=== PATIENT | female | born 1990 | race Caucasian/White ===

== ENCOUNTER 2019-07-08 03:18 | Emergency (ER) | payer SELFPAY ==
[2019-07-08] MEDS ORDERED: Ondansetron 4 MG Tab.DIS PO ONE (03:54)
--- NOTE | 2019-07-08 04:13 | EDM.PDOC ---
ED HPI GENERAL MEDICAL PROBLEM - General Chief Complaint: Abdominal Pain Stated Complaint: VOMITING/ABD PAIN Time Seen by Provider: 07/08/19 03:41 Source of Information: Reports: Patient, RN Notes Reviewed - History of Present Illness INITIAL COMMENTS - FREE TEXT/NARRATIVE: 28-year-old female comes in with abdominal pain, nausea vomiting and diarrhea. Saw started early yesterday morning about 22 hours ago. She awakened with abdominal pain nausea vomiting early yesterday morning and continued to have nausea intermittent vomiting throughout the day. She then did have some diarrhea around noon yesterday, multiple episodes of watery diarrhea. When she has tried to eat she has more vomiting or diarrhea. To her knowledge she has not eaten anything that would be making her ill. There's been no obvious fever. 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 Social & Family History - Tobacco Use Smoking Status *Q: Former Smoker Years of Tobacco use: 13 Packs/Tins Daily: 0.5 Used Tobacco, but Quit: Yes Month/Year Tobacco Last Used: april 2019 - Caffeine Use Caffeine Use: Reports: None - Recreational Drug Use Recreational Drug Use: No ED ROS GENERAL - Review of Systems Review Of Systems: See Below Constitutional: Denies: Fever, Chills HEENT: Reports: No Symptoms Respiratory: Denies: Shortness of Breath Cardiovascular: Denies: Chest Pain GI/Abdominal: Reports: Abdominal Pain (Generalized cramping), Diarrhea, Nausea, Vomiting (Watery repetitive) Musculoskeletal: Reports: No Symptoms Skin: Reports: No Symptoms Neurological: Reports: No Symptoms ED EXAM, GI/ABD - Physical Exam Exam: See Below General Appearance: Alert, No Apparent Distress Throat/Mouth: Normal Inspection, Normal Oropharynx Head: Atraumatic Neck: Supple Respiratory/Chest: No Respiratory Distress, Lungs Clear, Normal Breath Sounds Cardiovascular: Regular Rate, Rhythm GI/Abdominal Exam: Soft, Tender (Mild diffuse tenderness). No: Guarding, Rebound Extremities: Normal Inspection, Normal Range of Motion Neurological: Alert, Oriented, No Motor/Sensory Deficits Skin Exam: Warm, Dry, Normal Color Course - Vital Signs Last Recorded V/S: Last Vital Signs Temp 96.8 F 07/08/19 03:28 Pulse 98 07/08/19 03:28 Resp 20 07/08/19 03:28 BP 147/90 H 07/08/19 03:28 Pulse Ox 99 07/08/19 03:28 - Orders/Labs/Meds Meds: Medications Discontinued Medications Generic Name Dose Route Start Last Admin Trade Name Freq PRN Reason Stop Dose Admin Ondansetron HCl 4 mg 07/08/19 03:54 07/08/19 04:00 Zofran Odt PO 07/08/19 03:55 4 mg ONETIME ONE Administration - Re-Assessments/Exams Free Text/Narrative Re-Assessment/Exam: 07/08/19 04:28 Have given Zofran 4 mg ODT. Discharge instructions as documented. Departure - Departure Time of Disposition: 04:11 Disposition: Home, Self-Care 01 Condition: Fair Clinical Impression: Abdominal pain Qualifiers: Abdominal location: generalized Qualified Code(s): R10.84 - Generalized abdominal pain Diarrhea Qualifiers: Diarrhea type: unspecified type Qualified Code(s): R19.7 - Diarrhea, unspecified Vomiting Qualifiers: Vomiting type: unspecified Vomiting Intractability: non-intractable - Discharge Information Prescriptions: Ondansetron [Zofran ODT] 4 mg PO Q6H PRN #7 tab.dis PRN Reason: Nausea/Vomiting Instructions: Abdominal Pain, Adult, [id number] Referrals: PCP,None [Primary Care Provider] - Forms: ED Department Discharge, ED Return to Work/School Form Additional Instructions: Rest, clear liquids until this evening, then very careful bland diet as tolerated. Aufranc 4 mg ODT if needed for further nausea or vomiting. Again probiotic and take that twice daily for at least one week and thereafter as needed. Follow-up clinic if not getting back to normal within 2-3 days as expected. Return to ED as needed if symptoms worsening in any way.
== END 2019-07-08 04:18 | disposition home or self-care (01) ==
LOC: JD.ED 03:18
DX: R19.7 Diarrhea, unspecified (principal); R10.84 Generalized abdominal pain; R11.2 Nausea with vomiting, unspecified; K21.9 Gastro-esophageal reflux disease without esophagitis; Z79.899 Other long term (current) drug therapy; Z87.891 Personal history of nicotine dependence
CPT/HCPCS: 99283; A9270

== ENCOUNTER 2020-01-11 09:54 | Emergency (ER) | payer SELFPAY ==
--- NOTE | 2020-01-11 11:05 | EDM.PDOC ---
ED HPI GENERAL MEDICAL PROBLEM - General Chief Complaint: Gastrointestinal Problem Stated Complaint: VOMITING Time Seen by Provider: 01/11/20 10:54 - History of Present Illness INITIAL COMMENTS - FREE TEXT/NARRATIVE: 29-year-old female presents the emergency room with nausea vomiting. This has been going on for a couple of weeks now she has been throwing up once or twice daily. She has occasional loose stool usually following a vomiting episode. She does not have any significant abdominal discomfort. She denies any burning or frequency with urination. No fevers or chills. Patient denies any prior history of abdominal surgeries, she is not taking any routine medications. She had a negative test about a week ago. 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 No: Lymphadenopathy (L), Lymphadenopathy (R) Respiratory/Chest: No Respiratory Distress, Lungs Clear, Normal Breath Sounds Cardiovascular: Regular Rate, Rhythm, No Edema, No Murmur GI/Abdominal Exam: Normal Bowel Sounds, Soft, Non-Tender. No: Guarding, Rigid, Rebound Back Exam: Normal Inspection. No: CVA Tenderness (L), CVA Tenderness (R) Extremities: Normal Inspection, No Pedal Edema Course - Vital Signs Last Recorded V/S: Last Vital Signs Temp 36.9 C 01/11/20 10:06 Pulse 88 01/11/20 10:06 Resp 16 01/11/20 10:06 BP 129/104 H 01/11/20 10:06 Pulse Ox 98 01/11/20 10:06 - Orders/Labs/Meds Labs: Laboratory Tests 01/11/20 01/11/20 01/11/20 Range/Units 10:40 11:10 11:10 WBC 11.13 H (3.98-10.04) K/mm3 RBC 5.33 H (3.98-5.22) M/mm3 Hgb 15.5 (11.2-15.7) gm/dl Hct 44.4 (34.1-44.9) % MCV 83.3 (79.4-94.8) fl MCH 29.1 (25.6-32.2) pg MCHC 34.9 (32.2-35.5) g/dl RDW Std Deviation 39.2 (36.4-46.3) fL Plt Count 410 H (182-369) K/mm3 MPV 9.0 L (9.4-12.3) fl Neut % (Auto) 73.1 H (34.0-71.1) % Lymph % (Auto) 20.6 (19.3-51.7) % [place] % (Auto) 5.1 (4.7-12.5) % Eos % (Auto) 0.5 L (0.7-5.8) Baso % (Auto) 0.4 (0.1-1.2) % Neut # (Auto) 8.13 H (1.56-6.13) K/mm3 Lymph # (Auto) 2.29 (1.18-3.74) K/mm3 [place] # (Auto) 0.57 H (0.24-0.36) K/mm3 Eos # (Auto) 0.06 (0.04-0.36) K/mm3 Baso # (Auto) 0.05 (0.01-0.08) K/mm3 Sodium 135 L (136-145) mEq/L Potassium 4.2 (3.5-5.1) mEq/L Chloride 97 L (98-107) mEq/L Carbon Dioxide 25 (21-32) mEq/L Anion Gap 17.2 H (5-15) BUN 10 (7-18) mg/dL Creatinine 0.7 (0.55-1.02) mg/dL Est Cr Clr Drug Dosing 91.09 mL/min Estimated GFR (MDRD) > 60 (>60) mL/min BUN/Creatinine Ratio 14.3 (14-18) Glucose 231 H (74-106) mg/dL Calcium 9.4 (8.5-10.1) mg/dL Total Bilirubin 0.7 (0.2-1.0) mg/dL AST 43 H (15-37) U/L ALT 98 H (14-59) U/L Alkaline Phosphatase 55 (46-116) U/L Total Protein 8.4 H (6.4-8.2) g/dl Albumin 4.1 (3.4-5.0) g/dl Globulin 4.3 gm/dL Albumin/Globulin Ratio 1.0 (1-2) HCG, Qual (NEGATIVE) Urine Color Yellow (Yellow) Urine Appearance Clear (Clear) Urine pH 6.0 (5.0-8.0) Ur Specific Ramsey > or = 1.030 (1.005-1.030) Urine Protein Trace H (Negative) Urine Glucose (UA) 2+ H (Negative) Urine Ketones 2+ H (Negative) Urine Occult Blood Negative (Negative) Urine Nitrite Negative (Negative) Urine Bilirubin Negative (Negative) Urine Urobilinogen 0.2 (0.2-1.0) Ur Leukocyte Esterase Negative (Negative) Urine RBC 0-5 (0-5) /hpf Urine WBC 0-5 (0-5) /hpf Ur Squamous Epith Cells 0-5 (0-5) /hpf Urine Bacteria Moderate H (FEW) /hpf Urine Mucus Few (FEW) /hpf 01/11/20 Range/Units 11:10 WBC (3.98-10.04) K/mm3 RBC (3.98-5.22) M/mm3 Hgb (11.2-15.7) gm/dl Hct (34.1-44.9) % MCV (79.4-94.8) fl MCH (25.6-32.2) pg MCHC (32.2-35.5) g/dl RDW Std Deviation (36.4-46.3) fL Plt Count (182-369) K/mm3 MPV (9.4-12.3) fl Neut % (Auto) (34.0-71.1) % Lymph % (Auto) (19.3-51.7) % [place] % (Auto) (4.7-12.5) % Eos % (Auto) (0.7-5.8) Baso % (Auto) (0.1-1.2) % Neut # (Auto) (1.56-6.13) K/mm3 Lymph # (Auto) (1.18-3.74) K/mm3 [place] # (Auto) (0.24-0.36) K/mm3 Eos # (Auto) (0.04-0.36) K/mm3 Baso # (Auto) (0.01-0.08) K/mm3 Sodium (136-145) mEq/L Potassium (3.5-5.1) mEq/L Chloride (98-107) mEq/L Carbon Dioxide (21-32) mEq/L Anion Gap (5-15) BUN (7-18) mg/dL Creatinine (0.55-1.02) mg/dL Est Cr Clr Drug Dosing mL/min Estimated GFR (MDRD) (>60) mL/min BUN/Creatinine Ratio (14-18) Glucose (74-106) mg/dL Calcium (8.5-10.1) mg/dL Total Bilirubin (0.2-1.0) mg/dL AST (15-37) U/L ALT (14-59) U/L Alkaline Phosphatase (46-116) U/L Total Protein (6.4-8.2) g/dl Albumin (3.4-5.0) g/dl Globulin gm/dL Albumin/Globulin Ratio (1-2) HCG, Qual Negative (NEGATIVE) Urine Color (Yellow) Urine Appearance (Clear) Urine pH (5.0-8.0) Ur Specific [place] (1.005-1.030) Urine Protein (Negative) Urine Glucose (UA) (Negative) Urine Ketones (Negative) Urine Occult Blood (Negative) Urine Nitrite (Negative) Urine Bilirubin (Negative) Urine Urobilinogen (0.2-1.0) Ur Leukocyte Esterase (Negative) Urine RBC (0-5) /hpf Urine WBC (0-5) /hpf Ur Squamous Epith Cells (0-5) /hpf Urine Bacteria (FEW) /hpf Urine Mucus (FEW) /hpf Meds: Medications Discontinued Medications Generic Name Dose Route Start Last Admin Trade Name Damon PRN Reason Stop Dose Admin Lactated Ringer's 1,000 mls @ 999 mls/hr 01/11/20 11:09 01/11/20 11:32 Ringers, Lactated IV 01/11/20 12:09 999 mls/hr .BOLUS ONE Administration Ondansetron HCl 4 mg 01/11/20 11:09 01/11/20 11:32 Zofran IVPUSH 01/11/20 11:10 4 mg ONETIME ONE Administration - Re-Assessments/Exams Free Text/Narrative Re-Assessment/Exam: 01/11/20 13:16 Is doing much better after IV fluids and Zofran labs reviewed her blood sugars 231. She is been told she has been hyperglycemic in the past. I have advised to follow-up with her regular provider and get this evaluated. We will discharge with some Zofran Departure - Departure Time of Disposition: 13:17 Disposition: Home, Self-Care 01 Clinical Impression: Nausea and vomiting - Discharge Information Prescriptions: Ondansetron [Zofran ODT] 4 mg PO Q6H PRN #8 tab.dis PRN Reason: Nausea/Vomiting Referrals: PCP,None [Primary Care Provider] - Forms: ED Department Discharge Additional Instructions: Return to the emergency room with any questions problems or worsening symptoms. Follow-up in the hospital clinic in 1 week call today or tomorrow to schedule an appointment [phone]. Discuss any current problems including your hyperglycemia Use the Zofran as needed for nausea and vomiting Sepsis Event Note - Evaluation Sepsis Screening Result: No Definite Risk - Focused Exam Vital Signs: Vital Signs Temp Pulse Resp BP Pulse Ox 01/11/20 10:06 36.9 C 88 16 129/104 H 98 Date Exam was Performed: 01/11/20 Time Exam was Performed: 13:14
[2020-01-11] MEDS ORDERED: Ondansetron 4 MG/2 ML SDV IVPUSH ONE (11:09)
[2020-01-11] MEDS ORDERED: Lactated Ringers 1,000 ML IV ONE (11:09)
== END 2020-01-11 13:29 | disposition home or self-care (01) ==
LOC: JD.ED 09:54
DX: R11.2 Nausea with vomiting, unspecified (principal)
CPT/HCPCS: 36415; 80053; 81001; 84703; 85025; 96361; 96374; 99284; J2405; J7120; 99283

== ENCOUNTER 2021-05-20 03:17 | Emergency (ER) | payer SELFPAY ==
--- NOTE | 2021-05-20 03:46 | EDM.PDOC ---
ED HPI GENERAL MEDICAL PROBLEM - General Chief Complaint: Abdominal Pain Stated Complaint: gallbladder pain fever Time Seen by Provider: 05/20/21 03:31 Source of Information: Reports: Patient History Limitations: Reports: No Limitations - History of Present Illness INITIAL COMMENTS - FREE TEXT/NARRATIVE: Patient is a 30-year-old female complaining of near 10 out of 10 abdominal pain in her right upper quadrant consistent with her previous Maude lithiasis. Patient has been seen by and is scheduled to have her gallbladder removed on the of this month. Patient denies any vomiting but feels nauseous and denies any diarrhea or dysuria. She denies any fever or shaking chills. She has taken nothing for her pain symptoms. She states she only ate a peanut butter sandwich approximately 5 PM before onset of her pain at 7 PM. She denies having any greasy or fatty foods. She does not drink alcohol. Onset: Today Duration: Getting Worse Location: Reports: Abdomen Quality: Reports: Sharp, Stabbing Severity: Severe Improves with: Reports: None Worsens with: Reports: None Associated Symptoms: Reports: No Other Symptoms Right Upper Chest Pain Score (Numeric/FACES): 10 - Related Data Allergies Allergy/AdvReac Type Severity Reaction Status Date / Time No Known Allergies Allergy Verified 01/11/20 10:08 Home Meds: Home Meds Ondansetron [Zofran ODT] 4 mg PO Q6H PRN #7 tab.dis 05/20/21 [Rx] oxyCODONE HCl/Acetaminophen [Oxycodone-Acetaminophen 5-300] 1 each PO Q6HR PRN #10 tablet 05/20/21 [Rx] Past Medical History - Past Health History Medical/Surgical History: Denies Medical/Surgical History Gastrointestinal History: 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 ED EXAM, GI/ABD - Physical Exam Exam: See Below Exam Limited By: No Limitations General Appearance: Alert, Mild Distress Head: Atraumatic Neck: Normal Inspection Respiratory/Chest: No Respiratory Distress, Lungs Clear Cardiovascular: Regular Rate, Rhythm, No JVD GI/Abdominal Exam: Normal Bowel Sounds, No Organomegaly, Tender. No: Guarding, Rigid, Rebound Back Exam: Normal Inspection Extremities: Normal Inspection Neurological: Alert, Oriented Psychiatric: Normal Affect Skin Exam: Warm, Dry, Normal Color Course - Vital Signs Text/Narrative:: Patient was treated initially with IV fluids Toradol and a Elbe with Zofran. She did not get much pain relief with this she was given additional 4 mg morphine and is feeling much more comfortable. Patient's lab work is all normal. I will discharge her home at this time with instructions to call her surgeon if her symptoms continue and to return to ER if her symptoms worsen. Patient is scheduled to have her gallbladder out this Friday. I will give her prescriptions for a few Percocet and some Zofran. Last Recorded V/S: Last Vital Signs Temp 95.9 F L 05/20/21 03:37 Pulse 88 05/20/21 03:37 Resp 18 05/20/21 03:37 BP 116/59 L 05/20/21 03:37 Pulse Ox 97 05/20/21 03:37 - Orders/Labs/Meds Orders: Active Orders 24 hr Category Date Time Status Peripheral IV Care [RC] . DIRECTED Care 05/20/21 03:57 Active UA W/O MICROSCOPIC [URIN] Stat Lab 05/20/21 03:57 Ordered Sodium Chloride 0.9% [Saline Flush] Med 05/20/21 03:56 Active 10 ml FLUSH ASDIRECTED PRN Peripheral IV Insertion Adult [OM.PC] Routine Oth 05/20/21 03:55 Ordered Medication Orders Sodium Chloride (Sodium Chloride 0.9% 10 Ml Syringe) 10 ml FLUSH ASDIRECTED PRN PRN Reason: Keep Vein Open Last Admin: 05/20/21 04:37 Dose: 10 ml Documented by: VARUN Labs: Laboratory Tests 05/20/21 05/20/21 05/20/21 Range/Units 04:45 04:45 04:45 WBC 10.95 H (3.98-10.04) K/mm3 RBC 4.66 (3.98-5.22) M/mm3 Hgb 13.5 D (11.2-15.7) gm/dl Hct 40.3 (34.1-44.9) % MCV 86.5 D (79.4-94.8) fl MCH 29.0 (25.6-32.2) pg MCHC 33.5 (32.2-35.5) g/dl RDW Std Deviation 41.9 (36.4-46.3) fL Plt Count 355 (182-369) K/mm3 MPV 9.2 L (9.4-12.3) fl Neutrophils % (Manual) 57 (40-60) % Band Neutrophils % 6 (0-10) % Lymphocytes % (Manual) 27 (20-40) % Atypical Lymphs % 0 % Monocytes % (Manual) 6 (2-10) % Eosinophils % (Manual) 2 (0.7-5.8) % Basophils % (Manual) 2 H (0.1-1.2) Platelet Estimate Adequate Plt Morphology Comment Normal RBC Morph Comment Normal Sodium 140 (136-145) mEq/L Potassium 4.7 (3.5-5.1) mEq/L Chloride 104 (98-107) mEq/L Carbon Dioxide 23 (21-32) mEq/L Anion Gap 17.7 H (5-15) BUN 16 (7-18) mg/dL Creatinine 0.7 (0.55-1.02) mg/dL Est Cr Clr Drug Dosing 94.63 mL/min Estimated GFR (MDRD) > 60 (>60) mL/min BUN/Creatinine Ratio 22.9 H (14-18) Glucose 132 H (70-99) mg/dL Lactic Acid 1.5 (0.4-2.0) mmol/L Calcium 8.8 (8.5-10.1) mg/dL Total Bilirubin 0.6 (0.2-1.0) mg/dL AST 23 (15-37) U/L ALT 31 (14-59) U/L Alkaline Phosphatase 56 (46-116) U/L Total Protein 7.7 (6.4-8.2) g/dl Albumin 3.8 (3.4-5.0) g/dl Globulin 3.9 gm/dL Albumin/Globulin Ratio 1.0 (1-2) Lipase 75 (73-393) U/L Meds: Medications Generic Name Dose Route Start Last Admin Trade Name Freq PRN Reason Stop Dose Admin Sodium Chloride 10 ml 05/20/21 03:56 05/20/21 04:37 Sodium Chloride 0.9% 10 Ml Syringe FLUSH 10 ml ASDIRECTED PRN Administration Keep Vein Open Discontinued Medications Generic Name Dose Route Start Last Admin Trade Name Freq PRN Reason Stop Dose Admin Hydrocodone Bitart/Acetaminophen 1 tab 05/20/21 03:56 05/20/21 04:35 Acetaminophen/Hydrocodone 325-5 Mg Tab PO 05/20/21 03:57 1 tab ONETIME ONE Administration Sodium Chloride 1,000 mls @ 1,000 mls/hr 05/20/21 03:55 05/20/21 04:37 Normal Saline IV 05/20/21 04:54 1,000 mls/hr ONETIME ONE Administration Ketorolac Tromethamine 30 mg 05/20/21 03:55 05/20/21 04:38 Ketorolac 30 Mg/Ml Sdv IVPUSH 05/20/21 03:56 30 mg ONETIME ONE Administration Morphine Sulfate 4 mg 05/20/21 06:01 05/20/21 06:14 Morphine 4 Mg/Ml Syringe IVPUSH 05/20/21 06:02 4 mg ONETIME ONE Administration Ondansetron HCl 4 mg 05/20/21 03:55 05/20/21 04:38 Ondansetron 4 Mg/2 Ml Sdv IVPUSH 05/20/21 03:56 4 mg ONETIME ONE Administration Departure - Departure Time of Disposition: 06:42 Disposition: Home, Self-Care 01 Condition: Good Clinical Impression: Cholecystitis - Discharge Information Instructions: Cholecystitis, [id number], Gallbladder Eating Plan Referrals: Ayana Gilbert MD [Primary Care Provider] - Forms: ED Department Discharge, ED Return to Work/School Form Additional Instructions: Low-fat diet with small meals only. Call Dr. Aguilar tomorrow if symptoms continue return to ER anytime symptoms are worse. Percocet and Zofran as needed. Sepsis Event Note (ED) - Evaluation Sepsis Screening Result: No Definite Risk - Focused Exam Vital Signs: Vital Signs Temp Pulse Resp BP Pulse Ox 05/20/21 03:37 95.9 F L 88 18 116/59 L 97 - My Orders Last 24 Hours: My Active Orders 05/20/21 03:55 Peripheral IV Insertion Adult [OM.PC] Routine 05/20/21 03:56 Sodium Chloride 0.9% [Saline Flush] 10 ml FLUSH ASDIRECTED PRN 05/20/21 03:57 Peripheral IV Care [RC] . DIRECTED UA W/O MICROSCOPIC [URIN] Stat - Assessment/Plan Last 24 Hours: My Active Orders 05/20/21 03:55 Peripheral IV Insertion Adult [OM.PC] Routine 05/20/21 03:56 Sodium Chloride 0.9% [Saline Flush] 10 ml FLUSH ASDIRECTED PRN 05/20/21 03:57 Peripheral IV Care [RC] . DIRECTED UA W/O MICROSCOPIC [URIN] Stat
[2021-05-20] MEDS ORDERED: Ondansetron 4 MG/2 ML SDV IVPUSH ONE (03:55)
[2021-05-20] MEDS ORDERED: Ketorolac 30 MG/ML SDV IVPUSH ONE (03:55)
[2021-05-20] MEDS ORDERED: Sodium Chloride 0.9% 1,000 ML IV ONE (03:55)
[2021-05-20] MEDS ORDERED: Sodium Chloride 0.9% 10 ML Syringe FLUSH PRN (03:56)
[2021-05-20] MEDS ORDERED: Acetaminophen/HYDROcodone 325-5 MG Tab PO ONE (03:56)
[2021-05-20] MEDS ORDERED: Morphine 4 MG/ML Syringe IVPUSH ONE (06:01)
== END 2021-05-20 07:21 | disposition home or self-care (01) ==
LOC: JD.ED 03:17
DX: K81.9 Cholecystitis, unspecified (principal)
CPT/HCPCS: 36415; 80053; 83605; 83690; 85007; 85027; 96374; 96375; 99284; A9270; J1885; J2270; J2405; J7030

== ENCOUNTER 2021-06-06 07:00 | Day surgery (SDC) | payer SELFPAY ==
[~2021-06-06 07:00] MED LIST: Lactated Ringers 1,000 ML IV SCH; Lidocaine 1%/Sod Bicarbonate in NS 8.4% 1 ML Syringe IDERM PRN; Sodium Chloride 0.9% 10 ML Syringe FLUSH PRN
[2021-06-06] MEDS ORDERED: Lidocaine 1% with EPINEPHrine 1:100,000 10 ML MDV ONE (07:25)
[2021-06-06] MEDS ORDERED: Propofol 200 MG/20 ML SDV ONE (07:25)
[2021-06-06] MEDS ORDERED: fentaNYL 250 MCG/5 ML SDV ONE (07:26)
[2021-06-06] MEDS ORDERED: Midazolam 1 MG/ML 2 ML SDV ONE (07:26)
[2021-06-06] MEDS ORDERED: Lidocaine 1% 4 ML ONE (07:27)
[2021-06-06] MEDS ORDERED: Rocuronium 50 MG/5 ML Vial ONE (07:30)
[2021-06-06] MEDS ORDERED: Ketorolac 30 MG/ML SDV ONE (07:35)
[2021-06-06] MEDS ORDERED: Dexamethasone 4 MG/ML 5 ML MDV ONE (07:35)
[2021-06-06] MEDS ORDERED: Ondansetron 4 MG/2 ML SDV ONE (07:35)
[2021-06-06] MEDS ORDERED: Albuterol 0.083% 2.5 MG/3 ML Neb Soln NEB STA (07:41)
[2021-06-06] MEDS ORDERED: fentaNYL 100 MCG/2 ML SDV IVPUSH PRN (07:42)
[2021-06-06] MEDS ORDERED: HYDROmorphone 0.5 MG/0.5 ML Syringe IVPUSH PRN (07:42)
[2021-06-06] MEDS ORDERED: Ondansetron 4 MG/2 ML SDV IVPUSH PRN (07:42)
--- NOTE | 2021-06-06 07:51 | PCM.PREANE ---
Preanesthetic Assessment - Procedure Proposed Procedure: lap cathy - Anesthesia/Transfusion/Family Hx Anesthesia History: Prior Anesthesia Without Reaction Family History of Anesthesia Reaction: Other (see below) (uknown "i have no idea") Transfusion History: No Prior Transfusion(s) Intubation History: Unknown - Review of Systems General: No Symptoms Pulmonary: No Symptoms Cardiovascular: No Symptoms Gastrointestinal: Diarrhea (since gallbladder inflamation symptoms ), Nausea, Vomiting Neurological: No Symptoms Other: Reports: Diabetes (oral medications ), Anxiety (PTSD ) - Physical Assessment NPO Status Date: 06/05/21 NPO Status Time: 23:15 Vital Signs: 116/83 84 97% Height: 1.57 m Weight: 102 kg ASA Class: 3 Mental Status: Alert & Oriented x3 Airway Class: Mallampati = 1 Dentition: Reports: Normal Dentition (right front tooth appears chipped, she denied and said it has always been that way ) Thyro-Mental Finger Breadths: 3 Mouth Opening Finger Breadths: 5 ROM/Head Extension: Full Lungs: Clear to Auscultation, Normal Respiratory Effort Cardiovascular: Regular Rate, Regular Rhythm - Allergies Allergies/Adverse Reactions: Allergies Allergy/AdvReac Type Severity Reaction Status Date / Time chocolate flavor Allergy Other Verified 06/05/21 14:00 - Blood Blood Available: No - Anesthesia Plan Pre-Op Medication Ordered: None, Other (albuterol neb - last smoke on friday) - Acknowledgements Anesthesia Type Planned: General Anesthesia Pt an Appropriate Candidate for the Planned Anesthesia: Yes Alternatives and Risks of Anesthesia Discussed w Pt/Guardian: Yes Pt/Guardian Understands and Agrees with Anesthesia Plan: Yes PreAnesthesia Questionnaire - Past Health History Medical/Surgical History: Denies Medical/Surgical History Cardiovascular History: Reports: High Cholesterol Gastrointestinal History: Reports: GERD Other Gastrointestinal History: abnormal LFT's 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: , 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 Psychiatric History: Reports: Anxiety, Depression, PTSD Endocrine/Metabolic History: Reports: Diabetes, Type II - Infectious Disease History Infectious Disease History: Reports: Novel Coronavirus - SUBSTANCE USE Tobacco Use Status *Q: Light Tobacco User Tobacco Use Within Last Twelve Months: Cigarettes Recreational Drug Use History: Yes Recreational Drug Type: Reports: Marijuana/Hashish - HOME MEDS Home Medications: Home Meds Aspirin [Halfprin] 81 mg PO DAILY 06/05/21 [History] ClonazePAM [KlonoPIN] 0.5 mg PO ASDIRECTED 06/05/21 [History] Dicyclomine [Bentyl] 20 mg PO DAILY 06/05/21 [History] Omeprazole Magnesium [Prilosec Otc] 20 mg PO DAILY 06/05/21 [History] Prazosin [Minpress] 4 mg PO BEDTIME 06/05/21 [History] Promethazine [Phenergan] 1 applic TOP ASDIRECTED PRN 06/05/21 [History] Sertraline [Zoloft] 100 mg PO DAILY 06/05/21 [History] Venlafaxine [Effexor XR] 150 mg PO DAILY 06/05/21 [History] glipiZIDE [Glucotrol XL] 10 mg PO QID 06/05/21 [History] metFORMIN [Glucophage XR] 1,000 mg PO BID 06/05/21 [History] - CURRENT (IN HOUSE) MEDS Current Meds: Current Medications Fentanyl (Fentanyl 100 Mcg/2 Ml Sdv) 50 mcg IVPUSH Q5M PRN PRN Reason: Pain Stop: 06/06/21 12:00 Hydromorphone HCl (Hydromorphone 0.5 Mg/0.5 Ml Syringe) 0.5 mg IVPUSH Q10M PRN PRN Reason: Pain (severe 7-10) Stop: 06/06/21 12:00 Lactated Ringer's (Ringers, Lactated) 1,000 mls @ 125 mls/hr IV ASDIRECTED ELIZABETH Stop: 06/06/21 23:00 Lidocaine/Sodium Bicarbonate (Lidocaine 1%/Sod Bicarbonate In Ns 8.4% 1 Ml Syringe) 0.25 ml IDERM ONETIME PRN PRN Reason: Prior to IV Start Stop: 06/06/21 18:00 Ondansetron HCl (Ondansetron 4 Mg/2 Ml Sdv) 4 mg IVPUSH ONETIME PRN PRN Reason: Nausea/Vomiting Stop: 06/06/21 12:00 Sodium Chloride (Sodium Chloride 0.9% 10 Ml Syringe) 10 ml FLUSH ASDIRECTED PRN PRN Reason: Keep Vein Open Stop: 06/06/21 18:00 Discontinued Medications Albuterol (Albuterol 0.083% 2.5 Mg/3 Ml Neb Soln) 2.5 mg NEB ONETIME STA Stop: 06/06/21 07:42 Bupivacaine HCl/Epinephrine Bitart (Bupivacaine 0.5%/Epinephrine 1:200,000 50 Ml Mdv) Confirm Administered Dose 50 ml .ROUTE .ST-MED ONE Stop: 06/06/21 07:26 Dexamethasone (Dexamethasone 4 Mg/Ml 5 Ml Mdv) Confirm Administered Dose 20 mg .ROUTE .STK-MED ONE Stop: 06/06/21 07:36 Fentanyl (Fentanyl 250 Mcg/5 Ml Sdv) Confirm Administered Dose 250 mcg .ROUTE .ST-MED ONE Stop: 06/06/21 07:27 Lidocaine HCl (Xylocaine-Mpf 1%) Confirm Administered Dose 4 mls @ as directed .ROUTE .[facility]-MED ONE Stop: 06/06/21 07:28 Ketorolac Tromethamine (Ketorolac 30 Mg/Ml Sdv) Confirm Administered Dose 30 mg .ROUTE .ST-MED ONE Stop: 06/06/21 07:36 Lidocaine/Epinephrine (Lidocaine 1% With Epinephrine 1:100,000 10 Ml Mdv) Confirm Administered Dose 20 ml .ROUTE .ST-MED ONE Stop: 06/06/21 07:26 Lidocaine/Epinephrine (Lidocaine 1% With Epinephrine 1:100,000 10 Ml Mdv) Confirm Administered Dose 10 ml .ROUTE .[facility]-MED ONE Stop: 06/06/21 07:34 Midazolam HCl (Midazolam 1 Mg/Ml 2 Ml Sdv) Confirm Administered Dose 2 mg .ROUTE .STK-MED ONE Stop: 06/06/21 07:27 Ondansetron HCl (Ondansetron 4 Mg/2 Ml Sdv) Confirm Administered Dose 4 mg .ROUTE .ST-MED ONE Stop: 06/06/21 07:36 Propofol (Propofol 200 Mg/20 Ml Sdv) Confirm Administered Dose 400 mg .ROUTE .ST-MED ONE Stop: 06/06/21 07:26 Rocuronium Catherine (Rocuronium 50 Mg/5 Ml Vial) Confirm Administered Dose 50 mg .ROUTE .ST-MED ONE Stop: 06/06/21 07:31
[2021-06-06] MEDS ORDERED: Scopolamine 1.5 MG Transdermal Patch TOP ONE (08:00)
[2021-06-06] MEDS ORDERED: Albuterol 6.7 GM Inhaler INH ONE (08:29)
[2021-06-06] MEDS ORDERED: Acetaminophen 325 MG Tab PO ONE (08:30)
[2021-06-06] MEDS ORDERED: Gabapentin 300 MG Cap PO ONE (08:30)
[2021-06-06] MEDS ORDERED: ceFAZolin 1 GM Vial ONE (08:34)
[2021-06-06] MEDS: Bupivacaine 0.5%/EPINEPHrine 1:200,000 50 ML MDV ONE ×2 (08:39→08:55)
[2021-06-06] MEDS: Lidocaine 1% with EPINEPHrine 1:100,000 10 ML MDV ONE ×2 (08:39→08:55)
[2021-06-06] MEDS ORDERED: HYDROmorphone 0.5 MG/0.5 ML Syringe ONE ×3 (08:49→09:38)
[2021-06-06] MEDS ORDERED: Ketamine 500 mg/10 ML MDV ONE (08:49)
--- NOTE | 2021-06-06 09:42 | PCM.OPNOTE ---
- General Post-Op/Procedure Note Date of Surgery/Procedure: 06/06/21 Operative Procedure(s): Laparoscopic cholecystectomy Findings: Normal-appearing gallbladder Pre Op Diagnosis: Symptomatic cholelithiasis Post-Op Diagnosis: Same Anesthesia Technique: General ET Tube, Local Primary Surgeon: Ellen Will Anesthesia Provider: Jessica العراقي Pathology: gallbladder Fluid Replacement, Intraop: 1,100 Output, Urine Amount: 0 EBL in mLs: 5 Complications: none apparent Condition: Good
--- NOTE | 2021-06-06 09:52 | PCM.PRNOTE ---
- Free Text/Narrative Note: OPERATIVE REPORT Date of Surgery/Procedure: June 06, 2021 Operative Procedure(s): laparoscopic cholecystectomy Findings: normal appearing gallbladder Pre Op Diagnosis: Symptomatic cholelithiasis Post-Op Diagnosis: Same Anesthesia Technique: General ET Tube Primary Surgeon: Ellen Will MD Set Off Blocker: Diony Lomeli MS3 Anesthesia Provider: Jessica العراقي CRNA Pathology: Gallbladder with contents Fluid Replacement, Intraop: 1100cc Output, Urine Amount: 0cc EBL: 5cc Drain/Tube Comments: none Indication for the procedure: The patient is a 30-year-old lady who presented to my office with right upper quadrant abdominal pain. The patient was counseled for laparoscopic cholecystectomy, with possible conversion to open. After discussion of the risks of infection, bleeding and injury to the bile duct as well as increased complication from previous intra-abdominal surgery, the patient's consent was obtained. Description of the procedure: The patient presented to the outpatient holding area on the day of the procedure. The history and physical were verified and consent was present and on the chart. The patient was taken back to the operating room and placed in supine position on the operating table. SCD boots were placed and functional prior to the start of the procedure. Preoperative antibiotics were administered according to SCIP protocol, Ancef 2 g IV. A surgical timeout was performed. The patient then had induction of general anesthesia and was intubated without difficulty. The patient was prepped and draped in standard surgical fashion. We began by making a 5mm incision in the left upper quadrant. A port was then inserted into the abdomen with the Visiport technique. The abdomen was then insufflated to 15 mmHg. We inserted a scope into the abdomen and inspected the area where we had entered. There was no evidence of injury to surrounding structures with no evidence of bile or bleeding. A TAP block was then performed using 1% lidocaine with epinephrine mixed with 0.5% bupivacaine with epinephrine. A supraumbilical 5mm port was then inserted under direct visualization. We then proceeded with placing our additional ports. A 12mm port was placed in the epigastric region. Two additional 5mm ports placed under direct visualization in the right upper quadrant. The patient was then positioned with head up and right side up to facilitate exposure of the gallbladder. Once we had sufficiently exposed the dome of the gallbladder. This was grasped and retracted cephalad. We proceeded with our dissection to expose the cystic duct and cystic artery. We did have a critical view. The cystic duct and artery were then clipped and cut using endoscopic scissors. We then proceeded to fully dissect the gallbladder off of the cystic plate using the Bovie device. The gallbladder was then placed in the Endo Catch bag and withdrawn towards the epigastric port. A Ray-Kristie was inserted into the abdomen to remove any blood, and then was removed from the abdomen. We then inspected the area of the dissection. The Bovie device was used for hemostasis in the cystic plate. There was no significant bleeding and hemostasis was achieved. We then inspected the port sites and desufflated the abdomen. The ports were then removed. The gallbladder was withdrawn through the epigastric port site. We then proceeded to close the epigastric port site using an 0 Vicryl stitch. We had good closure of the fascia. A superficial 4-0 monocryl suture was used to approximate the skin. The skin was covered with Dermabond surgical glue. The patient tolerated the procedure well and was extubated without difficulty. The patient was transported to the PACU in stable condition. All sponge, needle counts correct. No immediate complications noted. Complications: None apparent Condition: Good Ellen Will MD General Surgery
--- NOTE | 2021-06-06 10:06 | PCM.POSTAN ---
POST ANESTHESIA ASSESSMENT - MENTAL STATUS Mental Status: Alert - VITAL SIGNS Vital Signs: Last Vital Signs 0953 97 4 l 99 17 97.2 121/55 Temp 36.3 C 06/06/21 07:10 Pulse 84 06/06/21 07:10 Resp 18 06/06/21 07:10 BP 116/83 06/06/21 07:10 Pulse Ox 98 06/06/21 07:51 - RESPIRATORY Respiratory Status: Respiratory Rate WNL, Airway Patent, O2 Saturation Stable, Supplemental Oxygen - CARDIOVASCULAR CV Status: Pulse Rate WNL, Blood Pressure Stable - GASTROINTESTINAL GI Status: No Symptoms - PAIN Pain Score: 7 (being treated ) - POST OP HYDRATION Hydration Status: Adequate & Stable
[2021-06-06] MEDS ORDERED: Nalbuphine 10 MG/1 ML Vial IM ONE (10:10)
--- NOTE | 2021-06-06 11:26 | PCM48HPAN ---
Post Anesthesia Note - EVALUATION WITHIN 48HRS OF ANESTHETIC Vital Signs in Normal Range: Yes Patient Participated in Evaluation: Yes Respiratory Function Stable: Yes Airway Patent: Yes Cardiovascular Function Stable: Yes Hydration Status Stable: Yes Pain Control Satisfactory: Yes Nausea and Vomiting Control Satisfactory: Yes Mental Status Recovered: Yes Vital Signs: Last Vital Signs Temp 36.7 C 06/06/21 10:55 Pulse 79 06/06/21 11:05 Resp 20 06/06/21 11:05 BP 109/55 L 06/06/21 11:05 Pulse Ox 93 L 06/06/21 11:05
[2021-06-06] MEDS ORDERED: Acetaminophen/HYDROcodone 325-5 MG Tab PO ONE (13:00)
== END 2021-06-06 13:35 | disposition home or self-care (01) ==
LOC: JD.SDS 07:00
PROVIDERS: ATTEND Surgery
DX: K80.10 Calculus of gallbladder with chronic cholecystitis without obstruction (principal); E11.9 Type 2 diabetes mellitus without complications; F17.210 Nicotine dependence, cigarettes, uncomplicated; Z91.018 Allergy to other foods; Z79.899 Other long term (current) drug therapy
CPT/HCPCS: 47562; 94640; A9270; J0690; J1100; J1170; J1885; J2250; J2300; J2405; J2704; J2710; J3010; J3490; J7120; 00790

== ENCOUNTER 2021-09-05 21:04 | Emergency (ER) | payer SELFPAY ==
[2021-09-05] MEDS ORDERED: Lactated Ringers 1,000 ML IV ONE (23:08)
[2021-09-05] MEDS ORDERED: Haloperidol Lactate 5 MG/ML SDV IVPUSH ONE (23:08)
[2021-09-05] MEDS ORDERED: Famotidine 20 MG/2 ML SDV IVPUSH ONE (23:09)
--- NOTE | 2021-09-05 23:17 | EDM.PDOC ---
ED HPI GENERAL MEDICAL PROBLEM - General Chief Complaint: Abdominal Pain Stated Complaint: VOMITING Time Seen by Provider: 09/05/21 23:00 Source of Information: Reports: Patient History Limitations: Reports: No Limitations - History of Present Illness INITIAL COMMENTS - FREE TEXT/NARRATIVE: Patient is a 31-year-old female with chronic abdominal pain presenting with the chief complaint of abdominal pain. Patient reports the symptoms have been ongoing for approximately 1.5 years. Patient states the symptoms have worsened over the past 2 days. She states she feels increasingly nauseous and has been vomiting as well as suffering from increased diarrhea. Patient additionally has abdominal pain in the left upper and left lower quadrants. It is not more severe in the left upper or left lower. No radiation of symptoms. Patient reports feeling extremely lethargic and dizzy because of the symptoms. Has been seen by numerous doctors in the past without significant results or diagnosis. Patient states she had her gallbladder removed in May without any improvement. Patient denies any drug, marijuana, or alcohol use. Left Lower Anterior Abdomen Pain Score (Numeric/FACES): 9 - Related Data Allergies Allergy/AdvReac Type Severity Reaction Status Date / Time chocolate flavor Allergy Other Verified 09/05/21 22:55 Home Meds: Home Meds Aspirin [Halfprin] 81 mg PO DAILY 06/05/21 [History] ClonazePAM [KlonoPIN] 0.5 mg PO ASDIRECTED 06/05/21 [History] Dicyclomine [Bentyl] 20 mg PO DAILY 06/05/21 [History] Omeprazole Magnesium [Prilosec Otc] 20 mg PO DAILY 06/05/21 [History] Prazosin [Minpress] 4 mg PO BEDTIME 06/05/21 [History] Promethazine [Phenergan] 1 applic TOP ASDIRECTED PRN 06/05/21 [History] Sertraline [Zoloft] 100 mg PO DAILY 06/05/21 [History] Venlafaxine [Effexor XR] 150 mg PO DAILY 06/05/21 [History] glipiZIDE [Glucotrol XL] 10 mg PO QID 06/05/21 [History] metFORMIN [Glucophage XR] 1,000 mg PO BID 06/05/21 [History] Docusate Sodium [Colace] 100 mg PO BID #60 cap 06/06/21 [Rx] Hydrocodone/Acetaminophen [HYDROcodone-Acetaminophen 5-325 MG] 1 each PO Q4HR PRN #20 tablet 06/06/21 [Rx] Ibuprofen 600 mg PO Q6HR PRN #30 tablet 06/06/21 [Rx] atorvaSTATin [Lipitor] 10 mg PO DAILY 06/06/21 [History] Past Medical History - Past Health History Medical/Surgical History: Denies Medical/Surgical History HEENT History: Reports: None Cardiovascular History: Reports: High Cholesterol Respiratory History: Reports: None Gastrointestinal History: Reports: Chronic Diarrhea, GERD, Other (See Below) Other Gastrointestinal History: abnormal LFT's. 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 Musculoskeletal History: Reports: None Neurological History: Reports: None Psychiatric History: Reports: Anxiety, Depression, PTSD Endocrine/Metabolic History: Reports: Diabetes, Type II Hematologic History: Reports: None Immunologic History: Reports: None Oncologic (Cancer) History: Reports: None Dermatologic History: Reports: None - Infectious Disease History Infectious Disease History: Reports: Novel Coronavirus - Past Surgical History Head Surgeries/Procedures: Reports: None Cardiovascular Surgical History: Reports: None GI Surgical History: Reports: Cholecystectomy Other GI Surgeries/Procedures: 05/17/2021 Oncologic Surgical History: Reports: None Social & Family History - Family History Family Medical History: No Pertinent Family History - Tobacco Use Tobacco Use Status *Q: Former Tobacco User Years of Tobacco use: 13 Used Tobacco, but Quit: Yes Month/Year Tobacco Last Used: 05/2021 - Caffeine Use Caffeine Use: Reports: None - Recreational Drug Use Recreational Drug Use: No ED ROS GENERAL - Review of Systems Review Of Systems: See Below Free Text/Narrative/Comment: In addition to that documented in the HPI above, the additional ROS was obtained: Constitutional: Denies fevers or chills Eyes: Denies vision changes ENMT: Denies sore throat CV: Denies chest pain Resp: Denies SOB GI: Per HPI : Denies painful urination MSK: Denies recent trauma Skin: Denies new rashes Neuro: Denies new numbness or tingling or weakness Endocrine: Denies unexpected weight loss Heme: Denies bleeding disorders ED EXAM, GI/ABD - Physical Exam Exam: See Below Text/Narrative:: I have reviewed the triage vital signs Const: Well nourished, well developed, appears stated age Eyes: Pupils Equal and reactive to light bilaterally, no conjunctival injection HENT: No signs of trauma or swelling, Neck supple without meningismus CV: Regular Rate Rhythm, Warm, well-perfused extremities RESP: Unlabored respiratory effort GI: soft, non-tender, non-distended, no masses MSK: No gross deformities appreciated Skin: Warm, dry. No rashes Neuro: Alert, bell clerk II-XII grossly intact. Sensation and motor function of extremities grossly intact. Psych: Appropriate mood and affect. Course - Vital Signs Last Recorded V/S: Last Vital Signs Temp 36.1 C 09/05/21 22:42 Pulse 73 09/05/21 22:42 Resp 18 09/05/21 22:42 BP 127/59 L 09/05/21 22:42 Pulse Ox 100 09/05/21 22:42 - Orders/Labs/Meds Orders: Active Orders 24 hr Category Date Time Status Abdomen Pelvis w Cont [CT] Stat Exams 09/06/21 00:14 Taken HCG QUALITATIVE,URINE [URCHEM] Stat Lab 09/05/21 23:07 Ordered Labs: Laboratory Tests 09/05/21 09/05/21 Range/Units 23:34 23:34 WBC 11.97 H (3.98-10.04) K/mm3 RBC 4.60 (3.98-5.22) M/mm3 Hgb 13.1 (11.2-15.7) gm/dl Hct 38.8 (34.1-44.9) % MCV 84.3 (79.4-94.8) fl MCH 28.5 (25.6-32.2) pg MCHC 33.8 (32.2-35.5) g/dl RDW Std Deviation 42.7 (36.4-46.3) fL Plt Count 402 H (182-369) K/mm3 MPV 9.5 (9.4-12.3) fl Neut % (Auto) 71.3 H (34.0-71.1) % Lymph % (Auto) 18.6 L (19.3-51.7) % Briscoe % (Auto) 8.7 (4.7-12.5) % Eos % (Auto) 0.8 (0.7-5.8) Baso % (Auto) 0.3 (0.1-1.2) % Neut # (Auto) 8.54 H (1.56-6.13) K/mm3 Lymph # (Auto) 2.23 (1.18-3.74) K/mm3 Briscoe # (Auto) 1.04 H (0.24-0.36) K/mm3 Eos # (Auto) 0.10 (0.04-0.36) K/mm3 Baso # (Auto) 0.03 (0.01-0.08) K/mm3 Sodium 134 L (136-145) mEq/L Potassium 3.2 L D (3.5-5.1) mEq/L Chloride 100 (98-107) mEq/L Carbon Dioxide 23 (21-32) mEq/L Anion Gap 14.2 (5-15) BUN 9 (7-18) mg/dL Creatinine 0.6 (0.55-1.02) mg/dL Est Cr Clr Drug Dosing 109.42 mL/min Estimated GFR (MDRD) > 60 (>60) mL/min BUN/Creatinine Ratio 15.0 (14-18) Glucose 100 H (70-99) mg/dL Calcium 8.9 (8.5-10.1) mg/dL Total Bilirubin 0.5 (0.2-1.0) mg/dL AST 13 L (15-37) U/L ALT 29 (14-59) U/L Alkaline Phosphatase 75 (46-116) U/L Total Protein 8.0 (6.4-8.2) g/dl Albumin 3.8 (3.4-5.0) g/dl Globulin 4.2 gm/dL Albumin/Globulin Ratio 0.9 L (1-2) Lipase 74 (73-393) U/L Meds: Medications Discontinued Medications Generic Name Dose Route Start Last Admin Trade Name Freq PRN Reason Stop Dose Admin Famotidine 20 mg 09/05/21 23:09 09/05/21 23:32 Famotidine 20 Mg/2 Ml Sdv IVPUSH 09/05/21 23:10 20 mg ONETIME ONE Administration Haloperidol Lactate 2.5 mg 09/05/21 23:08 09/05/21 23:32 Haloperidol Lactate 5 Mg/Ml Sdv IVPUSH 09/05/21 23:09 2.5 mg ONETIME ONE Administration Lactated Ringer's 1,000 mls @ 1,000 mls/hr 09/05/21 23:08 09/05/21 23:32 Ringers, Lactated IV 09/06/21 00:07 1,000 mls/hr .BOLUS ONE Administration Departure - Departure Time of Disposition: 03:12 Disposition: Home, Self-Care 01 Clinical Impression: Abdominal pain Qualifiers: Abdominal location: generalized Qualified Code(s): R10.84 - Generalized abdominal pain - Discharge Information Referrals: Allie Quintero DIVEMASTER [Primary Care Provider] - Forms: ED Department Discharge Sepsis Event Note (ED) - Evaluation Sepsis Screening Result: No Definite Risk - Focused Exam Vital Signs: Vital Signs Temp Pulse Resp BP Pulse Ox 09/05/21 22:42 36.1 C 73 18 127/59 L 100 - My Orders Last 24 Hours: My Active Orders 09/05/21 23:07 HCG QUALITATIVE,URINE [URCHEM] Stat 09/06/21 00:14 Abdomen Pelvis w Cont [CT] Stat - Assessment/Plan Last 24 Hours: My Active Orders 09/05/21 23:07 HCG QUALITATIVE,URINE [URCHEM] Stat 09/06/21 00:14 Abdomen Pelvis w Cont [CT] Stat Assessment:: Patient is 31-year-old female presenting to the emergency room with a complaint of abdominal pain. Patient unremarkable ER course. Given patient's longstanding history and previous treatments, haloperidol was used to treat pain as well as nausea/vomiting. Patient felt significant improvement after this administration. Patient underwent laboratory testing as well as CT scan. Differential diagnosis considered for this patient include diverticulitis, kidney stone, pyelonephritis, ovarian torsion. Based on patient's work-up, none of these were found. Unclear etiology at this point but patient is nontoxic and not demonstrating a surgical abdomen. Patient will be discharged with close outpatient follow-up. I addressed all her questions and concerns. Discharged in stable condition.
--- NOTE | 2021-09-06 07:43 | CT ---
CT abdomen and pelvis Technique: Multiple axial sections were obtained from above the dome of the diaphragm inferiorly through the pubic symphysis. Intravenous contrast was utilized. Delayed images were also obtained through the bladder. Reconstructed coronal and sagittal images were obtained. Comparison: No prior abdominal imaging is available. Findings: Visualized lung bases show minimal atelectasis or scarring within the left base. Slight low density is noted within the liver next to the ligamentum teres fissure which is incidental. Liver shows no acute abnormality. Spleen appears within normal limits. Adrenal glands show no nodule. Pancreas is within normal limits. Surgical clips are seen from prior cholecystectomy. Kidneys show symmetric contrast enhancement with no hydronephrosis or mass. Abdominal aorta shows no aneurysm. No retroperitoneal adenopathy or mesenteric abnormalities are seen. Appendix is seen which is normal in size. Finding within the center of the uterus which shows some peripheral enhancement which is suspicious for early . No pelvic mass or adenopathy is otherwise seen. No free fluid or inflammatory change is seen. Delayed images show contrast within the distal ureters and within the bladder. Bone window settings were reviewed which show slight degenerative change within the lumbar spine. No acute osseous abnormality is appreciated. Impression: 1. Cystic area within the uterus with peripheral enhancement highly suspicious for early . Ultrasound could be obtained to confirm. 2. No acute abnormality is otherwise seen. Diagnostic code #2 I slightly disagree with preliminary report from [facility], finalized on 09/06/21, 4:07 AM CDT, code 2
== END 2021-09-06 03:26 | disposition home or self-care (01) ==
LOC: JD.ED 21:04
DX: R10.84 Generalized abdominal pain (principal); R10.12 Left upper quadrant pain; R10.32 Left lower quadrant pain; E78.00 Pure hypercholesterolemia, unspecified; E11.9 Type 2 diabetes mellitus without complications; Z79.82 Long term (current) use of aspirin; Z91.018 Allergy to other foods; Z79.899 Other long term (current) drug therapy; Z86.16 Personal history of COVID-19; Z87.891 Personal history of nicotine dependence
CPT/HCPCS: 36415; 74177; 80053; 83690; 85025; 96374; 96375; 99284; J1630; J3490; J7120

== ENCOUNTER 2022-03-16 07:11 | Inpatient (IN) | payer MEDICAID ==
[2022-03-16] MEDS ORDERED: Sodium Chloride 0.9% 10 ML Syringe FLUSH PRN (07:28)
[2022-03-16] MEDS ORDERED: Lidocaine 1% 50 ML MDV INJECT ONE (07:28)
[2022-03-16] MEDS ORDERED: Ondansetron 4 MG/2 ML SDV IVPUSH PRN (07:28)
[2022-03-16] MEDS ORDERED: Nalbuphine HCl 10 MG/ 1ML Amp IVPUSH PRN (07:28)
[2022-03-16] MEDS ORDERED: Oxytocin/Lactated Ringers 10 UNIT/1,000 ML BAG IV SCH ×2 (07:30)
[2022-03-16] MEDS ORDERED: ePHEDrine 50 MG/ML SDV IVPUSH PRN (08:54)
[2022-03-16] MEDS ORDERED: fentaNYL 100 MCG/2 ML SDV EPIDUR PRN (08:54)
[2022-03-16] MEDS ORDERED: diphenhydrAMINE 50 MG/ML SDV IVPUSH PRN (08:54)
[2022-03-16] MEDS: Lactated Ringers 1,000 ML IV SCH ×3 (09:44→21:06)
[2022-03-16] MEDS: Bupivacaine/fentaNYL/NS 100 ML Bag EPIDUR PRN ×2 (15:23→23:30)
[2022-03-16] MEDS: Sodium Chloride 0.9% 10 ML Syringe FLUSH SCH ×2 (17:00→23:33)
[2022-03-16] MEDS ORDERED: Oxytocin/Lactated Ringers 20 UNIT/1,000 ML BAG IV SCH (20:15)
[2022-03-17] MEDS ORDERED: Bupivacaine 0.25% 10 ML SDV ONE
[2022-03-17] MEDS ORDERED: Citric Acid/Sodium Citrate Solution 30 ML Cup PO ONE (05:46)
[2022-03-17] MEDS ORDERED: Metoclopramide 10 MG/2 ML SDV IVPUSH ONE (05:46)
[2022-03-17] MEDS ORDERED: Azithromycin 500 MG in Sodium Chloride 0.9% 250 ML IV ONE (05:49)
[2022-03-17] MEDS: Lactated Ringers 1,000 ML IV SCH (05:50)
[2022-03-17] MEDS ORDERED: Ondansetron 4 MG/2 ML SDV ONE (05:59)
[2022-03-17] MEDS ORDERED: Oxytocin 10 Units/1 ML SDV ONE ×2 (05:59→06:00)
[2022-03-17] MEDS ORDERED: Ketorolac 30 MG/ML SDV ONE (05:59)
[2022-03-17] MEDS ORDERED: ceFAZolin 1 GM Vial ONE ×2 (05:59)
[2022-03-17] MEDS ORDERED: Morphine PF 10 MG/10 ML SDV ONE (05:59)
[2022-03-17] MEDS ORDERED: Lactated Ringers 2,000 ML ONE (05:59)
[2022-03-17] MEDS ORDERED: Lidocaine 2% with EPINEPHrine 1:200,000 20 ML SDV ONE (06:05)
[2022-03-17] MEDS ORDERED: Sodium Bicarbonate 8.4% 50 MEQ/50 ML SDV ONE (06:05)
[2022-03-17] MEDS ORDERED: Bupivacaine 0.5% 30 ML SDV ONE (06:38)
[2022-03-17] MEDS ORDERED: fentaNYL 100 MCG/2 ML SDV IVPUSH PRN (07:28)
[2022-03-17] MEDS ORDERED: Meperidine 50 MG/ML Vial IVPUSH PRN (07:28)
[2022-03-17] MEDS ORDERED: Ondansetron 4 MG/2 ML SDV IVPUSH PRN (07:28)
[2022-03-17] MEDS ORDERED: diphenhydrAMINE 50 MG/ML SDV IVPUSH PRN ×2 (07:28→08:23)
[2022-03-17] MEDS ORDERED: Acetaminophen/oxyCODONE 325-5 MG Tab PO PRN (08:23)
[2022-03-17] MEDS ORDERED: Ondansetron 4 MG/2 ML SDV IV PRN (08:23)
[2022-03-17] MEDS ORDERED: ePHEDrine 50 MG/ML SDV IVPUSH PRN (08:23)
[2022-03-17] MEDS ORDERED: Naloxone 0.4 MG/ML SDV IVPUSH PRN (08:23)
[2022-03-17] MEDS ORDERED: Dextrose 5%-Lactated Ringers 1,000 ML IV SCH (08:23)
[2022-03-17] MEDS: Simethicone 80 MG Tab.Chew PO SCH ×4 (10:20→21:06)
[2022-03-17] MEDS: Docusate Sodium 100 MG Cap PO SCH ×2 (10:20→21:07)
[2022-03-17] MEDS: Prenatal Multivitamin with Calcium/Folic Acid/Iron Tab PO SCH (10:20)
[2022-03-17] MEDS: Insulin Glargine,Human Rec. Analog 100 Units/ML 3 ML Pen SUBCUT SCH ×2 (10:20→18:03)
[2022-03-17] MEDS ORDERED: Lactated Ringers 1,000 ML IV ONE (11:29)
[2022-03-17] MEDS: Ibuprofen 800 MG Tab PO SCH (15:14)
[2022-03-18] MEDS: Ibuprofen 800 MG Tab PO SCH ×4 (00:05→23:56)
[2022-03-18] MEDS: Acetaminophen/oxyCODONE 325-5 MG Tab PO PRN ×3 (04:01→18:12)
[2022-03-18] MEDS: Insulin Glargine,Human Rec. Analog 100 Units/ML 3 ML Pen SUBCUT SCH ×2 (07:58→18:07)
[2022-03-18 08:13] LABS: HEMOGLOBIN A1C 6.6 %
[2022-03-18] MEDS: Prenatal Multivitamin with Calcium/Folic Acid/Iron Tab PO SCH (09:16)
[2022-03-18] MEDS: Docusate Sodium 100 MG Cap PO SCH ×2 (09:16→21:31)
[2022-03-18] MEDS: Simethicone 80 MG Tab.Chew PO SCH ×4 (09:16→21:31)
[2022-03-19] MEDS: Acetaminophen/oxyCODONE 325-5 MG Tab PO PRN (04:49)
[2022-03-19] MEDS: Insulin Glargine,Human Rec. Analog 100 Units/ML 3 ML Pen SUBCUT SCH (08:27)
[2022-03-19] MEDS: Docusate Sodium 100 MG Cap PO SCH (08:28)
[2022-03-19] MEDS: Simethicone 80 MG Tab.Chew PO SCH (08:28)
[2022-03-19] MEDS: Ibuprofen 800 MG Tab PO SCH (08:29)
== END 2022-03-19 12:05 | disposition home or self-care (01) | DRG 788 ==
LOC: JD.OBCHECK 07:11 → JD.OB 08:58 → JD.OBCHECK 13:00 → OBSVTOIN 03-17 07:24 → JD.OB 03-17 08:50
PROVIDERS: ADMIT Obstetrics & Gynecology; ATTEND Obstetrics & Gynecology
PROC: 10D00Z1 Extraction of Products of Conception, Low, Open Approach (ICD-10-PCS; principal; 2022-03-17)
DX: O24.12 Pre-existing type 2 diabetes mellitus, in childbirth (principal); O99.214 Obesity complicating childbirth; E66.01 Morbid (severe) obesity due to excess calories; O99.344 Other mental disorders complicating childbirth; F32.A Depression, unspecified; F41.9 Anxiety disorder, unspecified; F43.10 Post-traumatic stress disorder, unspecified; E78.00 Pure hypercholesterolemia, unspecified; K21.9 Gastro-esophageal reflux disease without esophagitis; O99.62 Diseases of the digestive system complicating childbirth; O75.89 Other specified complications of labor and delivery; Z90.49 Acquired absence of other specified parts of digestive tract; Z91.018 Allergy to other foods; Z79.82 Long term (current) use of aspirin; Z79.899 Other long term (current) drug therapy; Z79.4 Long term (current) use of insulin; Z3A.37 37 weeks gestation of pregnancy; Z37.0 Single live birth; Z87.891 Personal history of nicotine dependence
CPT/HCPCS: 01967; 01968; 36410; 36415; 51702; 59025; 76815; 76815-26; 80053; 82947; 83036; 85025; 86592; 86850; 86900; 86901; 99140; A9270-GY; J0456; J0690; J1815-GY; J1885; J2274; J2370; J2405; J2590; J2765; J3010; J3490; J7050; J7120

== ENCOUNTER 2024-12-12 17:23 | Emergency (ER) | payer MEDICAID ==
[2024-12-12] MEDS: Ondansetron 4 MG/2 ML SDV IVPUSH ONE (18:20)
[2024-12-12] MEDS: HYDROmorphone 0.5 MG/0.5 ML Syringe IVPUSH ONE (18:20)
[2024-12-12] MEDS: Sodium Chloride 0.9% 1,000 ML IV SCH (18:20)
[2024-12-12] MEDS: Sodium Chloride 0.9% 10 ML Syringe FLUSH PRN (18:20)
[2024-12-12 18:27] LABS: BASOPHILS PERCENT AUTO 0.3 % (0.0-1.0); EOSINOPHILS PERCENT AUTO 0.3 % (0.0-6.0); HEMATOCRIT 48.4 % (37.0-47.0); HEMOGLOBIN 16.1 gm/dl (12.0-16.0); IMMATURE GRAN ABSOLUTE AUTO 0.05 K/mm3 (0.00-0.05); IMMATURE GRAN PERCENT AUTO 0.5 % (0.0-0.4); LYMPHOCYTES PERCENT AUTO 9.5 % (24.0-44.0); MEAN CORPUSCULAR HEMOGLOBIN 27.7 pg (28.0-32.0); MEAN CORPUSCULAR HGB CONC 33.3 g/dl (32.0-36.0); MEAN CORPUSCULAR VOLUME 83.2 fl (83.0-99.0); MEAN PLATELET VOLUME 8.9 fl (9.4-12.3); MONOCYTES ABSOLUTE AUTO 0.6 K/mm3 (0.0-0.8); MONOCYTES PERCENT AUTO 5.9 % (0.0-8.0); NEUTROPHILS ABSOLUTE AUTO 8.3 K/mm3 (1.8-7.7); NEUTROPHILS PERCENT AUTO 83.5 % (41.0-71.0); PLATELET COUNT,PLT 347 K/mm3 (150-400); RED BLOOD CELL COUNT 5.82 M/mm3 (4.10-5.30); WHITE BLOOD CELL COUNT,WBC 9.96 K/mm3 (3.9-11.3)
[2024-12-12 18:51] LABS: A/G RATIO 0.9 (1-2); ALANINE AMINOTRANSFERASE,ALT 29 U/L (14-59); ALBUMIN 3.7 g/dl (3.4-5.0); ALKALINE PHOSPHATASE 81 U/L (46-116); ANION GAP 13.4 (5-15); ASPARTATE AMNIOTRANSFERASE,AST 16 U/L (15-37); BILIRUBIN TOTAL 0.6 mg/dL (0.2-1.0); BLOOD UREA NITROGEN,BUN 16 mg/dL (7-18); C-REACTIVE PROTEIN 2.82 mg/dL (<0.30); CALCIUM 8.4 mg/dL (8.5-10.1); CARBON DIOXIDE,CO2 26 mEq/L (21-32); CHLORIDE,CL 99 mEq/L (98-107); EST CRCL DRUG DOSING (CG) 66.81 mL/min; ESTIMATED GFR 77 mL/min (>60); GLUCOSE RANDOM 121 mg/dL (70-99); MAGNESIUM 1.5 mg/dL (1.8-2.4); POTASSIUM,K 3.4 mEq/L (3.5-5.1); SODIUM,NA 135 mEq/L (136-145)
[2024-12-12 18:56] LABS: TROPONIN I HIGH SENSITIVITY < 4 pg/mL (<=51)
== END 2024-12-12 19:21 | disposition home or self-care (01) ==
LOC: JD.ED 17:23
DX: R07.89 Other chest pain (principal); K52.9 Noninfective gastroenteritis and colitis, unspecified; E78.00 Pure hypercholesterolemia, unspecified; K21.9 Gastro-esophageal reflux disease without esophagitis; E11.9 Type 2 diabetes mellitus without complications; E66.9 Obesity, unspecified; Z86.16 Personal history of COVID-19; Z79.899 Other long term (current) drug therapy; Z79.4 Long term (current) use of insulin; Z91.018 Allergy to other foods; Z68.42 Body mass index [BMI] 45.0-49.9, adult
CPT/HCPCS: 36415; 71045; 71045-26; 80053; 83735; 84484; 85025; 86140; 87428-QW; 93005; 93010; 96361; 96374; 96375; 99284; 99285-25; J2405; J7030